=== PATIENT | female | born 1990 | race Caucasian/White ===

== ENCOUNTER 2023-04-25 13:17 | Observation (INO) | payer OTHER ==
[2023-04-25 15:13] VITALS: O2SAT 99
[2023-04-25 15:19] VITALS: BP 121/56; PULSE 84
== END 2023-04-25 14:55 | disposition home or self-care (01) ==
LOC: OB 13:17
PROVIDERS: ADMIT Obstetrics & Gynecology; ATTEND Obstetrics & Gynecology
DX: Z34.82 Encounter for supervision of other normal pregnancy, second trimester (principal); Z3A.26 26 weeks gestation of pregnancy
CPT/HCPCS: G0378; G0379

== ENCOUNTER 2023-07-20 07:20 | Inpatient (IN) | payer OTHER ==
[2023-07-20] MEDS ORDERED: BRETHINE 1 MG/ML SQ PRN (15:00)
[2023-07-20] MEDS ORDERED: Zofran 4 MG/2 ML VIAL IV PRN (15:00)
[2023-07-20 15:25] LABS: Absolute Neutrophil Ct (ANC) 8.88 x10^3/uL (1.4-6.9); BASOPHIL % 0.4 % (0.0-0.4); Basophil (Absolute #) 0.05 x10^3/uL (0-0.4); Eosinophil % 0.9 % (0.00-5.0); Hematocrit 39.3 % (35-47); Hemoglobin 13.2 g/dL (12.0-16.0); IMMATURE GRAN # 0.05 x10^3u/L (0.00-0.03); IMMATURE GRAN % 0.4 % (0.00-0.4); Lymphocyte (Absolute #) 1.59 x10^3/uL (1.0-4.6); Lymphocytes % 14.2 % (24.0-44.0); Mean Corpuscular Hemoglobin 30.6 pg (26-32); Mean Corpuscular Hgb Concent. 33.6 g/dL (32-36); Mean Platelet Volume 10.5 fL (7.5-11.0); Monocyte (Absolute #) 0.49 x10^3/uL (0.0-1.3); Monocytes % 4.4 % (0.0-12.0); Neutrophil % 79.7 % (36.0-66.0); Platelet Count 284 x10^3/uL (150-450); Red Blood Count 4.32 x10^6/uL (4.1-5.4); Red Cell Distribution Width 12.9 % (11.5-14.0); White Blood Count 11.2 x10^3/uL (4.0-10.5)
[2023-07-20 15:51] LABS: Amphetamine,Urine NEGATIVE (NEGATIVE); Barbiturate,Urine NEGATIVE (NEGATIVE); Benzodiazepine,Urine NEGATIVE (NEGATIVE); Cocaine,Urine NEGATIVE (NEGATIVE); Methadone,Urine NEGATIVE (NEGATIVE); Opiate,Urine NEGATIVE (NEGATIVE); PCP,Urine NEGATIVE (NEGATIVE); THC,Urine NEGATIVE (NEGATIVE)
[2023-07-20 16:02] LABS: ABO TYPING A; Antibody Screen NEGATIVE (NEGATIVE); RH TYPING POSITIVE
[2023-07-20] MEDS: CYTOTEC PO SCH ×4 (16:04→22:14)
[2023-07-20 16:08] LABS: Appearance Cloudy (Clear); Bacteria Many /HPF (None Seen); Bilirubin Negative (Negative); Blood Negative (Negative); Epithelial Cells Few /HPF (None Seen); Glucose, Urine Negative (Negative); Ketones 15 (Negative); Leukocyte Esterase Moderate (Negative); Nitrite Negative (Negative); Protein,Urine Dip Negative (Negative); WBC 51-100 /HPF (0-5)
[2023-07-20 16:16] LABS: ADD URINE CULTURE? YES (NO); Hyaline Casts NONE SEEN /LPF (0-2)
[2023-07-21] MEDS ORDERED: OMNIPEN 2 GM*** 2 G in Sodium Chloride 100ML MINI-BAG PLUS 100 ML IV ONE ×2
[2023-07-21] MEDS: CYTOTEC PO SCH ×3 (00:11→04:05)
[2023-07-21] MEDS ORDERED: OMNIPEN 1 GM*** 1 GM in Sodium Chloride 100ML MINI-BAG PLUS 100 ML IV SCH (04:00)
[2023-07-21] MEDS ORDERED: Lactated Ringers 1,000 ML IV ONE (06:00)
[2023-07-21] MEDS: TYLENOL EXTRA STRENGTH 500 MG PO PRN (06:25)
[2023-07-21] MEDS ORDERED: PITOCIN 30 UNITS/ LR 500 ML 30 UNITS/500 ML PLAST..BAG IV SCH ×2 (07:00→09:00)
[2023-07-21] MEDS ORDERED: Lactated Ringers 1,000 ML IV SCH (07:00)
[2023-07-21] MEDS ORDERED: FENTANYL 2 MCG-BUPIV 0.125%-NS 250 ML Epidur 250 ML EPIDURAL SCH (07:00)
[2023-07-21] MEDS ORDERED: Ephedrine Sulfate 50 MG/ML IV PRN (07:00)
[2023-07-21] MEDS ORDERED: XYLOCAINE 1% HCL 20 ML MDV IJ PRN (09:00)
[2023-07-21] MEDS ORDERED: Zithromax 500 MG/ 250 ML NaCl Premix 500 MG/250 ML IVPB IV SCH (11:45)
[2023-07-21] MEDS ORDERED: SODIUM CHLORIDE 0.9% IV ONE (11:45)
[2023-07-21] MEDS ORDERED: GARAMYCIN IV ONE (11:45)
[2023-07-21] MEDS ORDERED: Sodium Chloride 0.9% 1000 ML 1,000 ML ONE (12:18)
[2023-07-21] MEDS ORDERED: TUCKS TP PRN (13:18)
[2023-07-21] MEDS ORDERED: Dermoplast Spray TP PRN (13:18)
[2023-07-21] MEDS ORDERED: M-M-R II Vaccine With Diluent SQ ONE (13:18)
[2023-07-21] MEDS ORDERED: LANSINOH 40 GM TOP PRN (13:18)
[2023-07-21] MEDS ORDERED: Adacel Vial IM ONE (13:18)
[2023-07-21] MEDS: MOTRIN 400 MG PO PRN (21:19)
[2023-07-21] MEDS ORDERED: Docusate Sodium 100 MG PO SCH (22:00)
[2023-07-22] MEDS: MOTRIN 400 MG PO PRN (03:47)
[2023-07-22 04:41] VITALS: O2SAT 98
[2023-07-22 05:56] LABS: Absolute Neutrophil Ct (ANC) 8.06 x10^3/uL (1.4-6.9); BASOPHIL % 0.4 % (0.0-0.4); Basophil (Absolute #) 0.05 x10^3/uL (0-0.4); Eosinophil % 1.4 % (0.00-5.0); Eosinophil (Absolute #) 0.16 x10^3/uL (0-0.5); Hematocrit 34.7 % (35-47); Hemoglobin 11.3 g/dL (12.0-16.0); IMMATURE GRAN # 0.08 x10^3u/L (0.00-0.03); IMMATURE GRAN % 0.7 % (0.00-0.4); Lymphocyte (Absolute #) 2.21 x10^3/uL (1.0-4.6); Lymphocytes % 19.7 % (24.0-44.0); Mean Corpuscular Hemoglobin 30.3 pg (26-32); Mean Corpuscular Hgb Concent. 32.6 g/dL (32-36); Mean Platelet Volume 10.3 fL (7.5-11.0); Monocyte (Absolute #) 0.68 x10^3/uL (0.0-1.3); Neutrophil % 71.8 % (36.0-66.0); Platelet Count 222 x10^3/uL (150-450); Red Blood Count 3.73 x10^6/uL (4.1-5.4); Red Cell Distribution Width 13.1 % (11.5-14.0); White Blood Count 11.2 x10^3/uL (4.0-10.5)
[2023-07-22] MEDS: TYLENOL EXTRA STRENGTH 500 MG PO PRN (06:44)
--- NOTE | 2023-07-22 08:29 | PCM.NOTE ---
Date and Time: 07/22/23826 Subjective Assessment: ppd 1 sp pt resting in bed and doing well able to ambulate and tolerate diet. vss afebrile abd; soft uterus; firm lohica; mild a/p sp ppd 1 dc home tomorrow should fu office in 3 wks OBJECTIVE DATA Vital Signs: Vital Signs - 24 hr Temp Pulse Resp BP BP BP Pulse Ox 07/22/23 03:00 97.7 F 50 L 18 98 07/22/23 01:00 97.9 F 53 L 18 107/73 97 07/21/23 21:00 98.5 F 64 20 130/74 98 07/21/23 16:30 98.9 F 55 L 20 107/65 98 07/21/23 16:00 98.9 F 54 L 20 116/60 99 07/21/23 15:00 98.9 F 52 L 20 128/65 100 07/21/23 14:30 98.7 F 54 L 20 114/59 99 07/21/23 14:00 98.7 F 60 20 135/74 99 07/21/23 13:45 98.7 F 60 20 133/63 99 07/21/23 13:30 98.7 F 59 L 20 114/61 99 07/21/23 13:15 98.7 F 64 20 122/60 99 07/21/23 13:00 98.7 F 71 20 125/61 99 07/21/23 12:45 98.2 F 77 20 124/66 99 07/21/23 12:30 98.2 F 20 99 07/21/23 12:15 98.8 F 120 H 20 118/74 99 07/21/23 12:00 99.0 F 120 H 18 118/74 118/74 100 07/21/23 11:45 99.0 F 85 18 131/85 100 07/21/23 11:30 99.0 F 18 100 07/21/23 11:15 99.0 F 69 18 119/56 100 07/21/23 11:00 99.0 F 67 18 116/64 100 07/21/23 10:45 98.0 F 56 L 18 121/57 100 07/21/23 10:30 98.0 F 56 L 18 134/66 100 07/21/23 10:15 98.0 F 73 18 134/59 100 07/21/23 10:00 98.0 F 72 18 118/61 100 07/21/23 09:45 98.0 F 66 18 100 07/21/23 09:30 98.0 F 77 18 112/67 100 07/21/23 09:15 98.0 F 74 18 106/57 100 07/21/23 09:00 98.0 F 64 18 127/74 100 07/21/23 08:45 98.0 F 67 18 102/57 100 07/21/23 08:30 98.0 F 84 18 113/77 100 Pain Assessment - Last Documented Pain Intensity [Lower] 2 Pain Intensity 4 Pain Scale Used 0-10 Pain Scale Intake and Output: Intake & Output 07/19/23 07/20/23 07/21/23 07/22/23 11:59 11:59 11:59 11:59 Intake Total 1999 2500 Output Total 200 Balance 1999 2300 Weight 95.254 kg Lab Results: Lab Results-Last 24 Hours 07/22/23 Range/Units 05:15 WBC 11.2 H (4.0-10.5) x10^3/uL RBC 3.73 L (4.1-5.4) x10^6/uL Hgb 11.3 L (12.0-16.0) g/dL Hct 34.7 L (35-47) % MCV 93.0 (78-100) fL MCH 30.3 (26-32) pg MCHC 32.6 (32-36) g/dL RDW 13.1 (11.5-14.0) % Plt Count 222 (150-450) x10^3/uL MPV 10.3 (7.5-11.0) fL Gran % 71.8 H (36.0-66.0) % Immature Gran % (Auto) 0.7 H (0.00-0.4) % Nucleat RBC Rel Count 0.0 (0.00-0.1) % Eos # (Auto) 0.16 (0-0.5) x10^3/uL Immature Gran # (Auto) 0.08 H (0.00-0.03) x10^3u/L Absolute Lymphs (auto) 2.21 (1.0-4.6) x10^3/uL Absolute Monos (auto) 0.68 (0.0-1.3) x10^3/uL Absolute Nucleated RBC 0.00 (0.00-0.01) x10^3u/L Lymphocytes % 19.7 L (24.0-44.0) % Monocytes % 6.0 (0.0-12.0) % Eosinophils % 1.4 (0.00-5.0) % Basophils % 0.4 (0.0-0.4) % Absolute Granulocytes 8.06 H (1.4-6.9) x10^3/uL Basophils # 0.05 (0-0.4) x10^3/uL Assessment/Plan (1) Vaginal delivery Current Visit: Yes Status: Acute Code(s): O80 - ENCOUNTER FOR FULL-TERM UNCOMPLICATED DELIVERY
--- NOTE | 2023-07-22 08:31 | PCM.DS ---
Discharge Summary Date of Admission: 07/21/23 07:20 Admitting Physician: REHAN PUENTES DO Consults: Consults on Case 07/21/23 08:00 Notify Anesthesia Provider PRN Primary Care Provider: GEM BONILLA Allergies Allergies No Known Drug Allergies Allergy (Verified 07/12/23 16:16) Hospital Summary - Hospital Course Hospital Course: pt admitted on july 20 for oral cytotec induction at 39 wks gestation and subsequently delivered live baby boy via on july 21 with nuchal cord x 1 without complication. during period did very well able to ambulate and tolerate diet. pt with stable hgb at 11 and at this time stable for discharge on july 23. all questions answered to her satisfaction. - Vitals & Intake/Output Vital Signs: Vital Signs Temperature 97.7 F 07/22/23 03:00 Pulse Rate 50 L 07/22/23 03:00 Respiratory Rate 18 07/22/23 03:00 Blood Pressure 107/73 07/22/23 01:00 O2 Sat by Pulse Oximetry 98 07/22/23 03:00 Intake & Output: Intake & Output 07/19/23 07/20/23 07/21/23 07/22/23 11:59 11:59 11:59 11:59 Intake Total 2000 2500 Output Total 200 Balance 1999 2300 Weight 95.254 kg - Lab Result Diagrams: 07/22/23 05:15 Lab Results-Last 24 Hrs: Lab Results-Last 24 Hours 07/22/23 Range/Units 05:15 WBC 11.2 H (4.0-10.5) x10^3/uL RBC 3.73 L (4.1-5.4) x10^6/uL Hgb 11.3 L (12.0-16.0) g/dL Hct 34.7 L (35-47) % MCV 93.0 (78-100) fL MCH 30.3 (26-32) pg MCHC 32.6 (32-36) g/dL RDW 13.1 (11.5-14.0) % Plt Count 222 (150-450) x10^3/uL MPV 10.3 (7.5-11.0) fL Gran % 71.8 H (36.0-66.0) % Immature Gran % (Auto) 0.7 H (0.00-0.4) % Nucleat RBC Rel Count 0.0 (0.00-0.1) % Eos # (Auto) 0.16 (0-0.5) x10^3/uL Immature Gran # (Auto) 0.08 H (0.00-0.03) x10^3u/L Absolute Lymphs (auto) 2.21 (1.0-4.6) x10^3/uL Absolute Monos (auto) 0.68 (0.0-1.3) x10^3/uL Absolute Nucleated RBC 0.00 (0.00-0.01) x10^3u/L Lymphocytes % 19.7 L (24.0-44.0) % Monocytes % 6.0 (0.0-12.0) % Eosinophils % 1.4 (0.00-5.0) % Basophils % 0.4 (0.0-0.4) % Absolute Granulocytes 8.06 H (1.4-6.9) x10^3/uL Basophils # 0.05 (0-0.4) x10^3/uL Micro Results-Entire Visit: Microbiology 07/20/23 15:26 Urine Culture - Preliminary Clean Catch Midstream NO GROWTH TO DATE Final Diagnosis/Problem List - Final Discharge Diagnosis/Problem (1) Vaginal delivery Current Visit: Yes Status: Acute Code(s): O80 - ENCOUNTER FOR FULL-TERM UNCOMPLICATED DELIVERY - Discharge Disposition: Home, Self-Care Condition: Stable Prescriptions: No Action Pnv No.95/Ferrous Fum/Folic AC [ Caplet] 1 each PO DAILY Citalopram Hydrobromide [Celexa] 10 mg PO DAILY Follow up with: GEM BONILLA MD [Primary Care Provider] - REHAN PUENTES DO [ACTIVE STAFF] - 3 weeks
[2023-07-22] MEDS ORDERED: FERREX 150 PO SCH (10:00)
[2023-07-22 17:30] VITALS: TEMP 98.6
[2023-07-23 08:14] VITALS: BP 119/69; PULSE 52; RESP 17
== END 2023-07-23 10:15 | disposition home or self-care (01) | DRG 807 ==
LOC: OB 07:20 → OBSVTOIN 07-21 07:20
PROVIDERS: ADMIT Obstetrics & Gynecology; ATTEND Obstetrics & Gynecology
PROC: 10E0XZZ Delivery of Products of Conception, External Approach (ICD-10-PCS; principal; 2023-07-21)
DX: O69.81X0 Labor and delivery complicated by cord around neck, without compression, not applicable or unspecified (principal); Z37.0 Single live birth; Z3A.39 39 weeks gestation of pregnancy; Z20.828 Contact with and (suspected) exposure to other viral communicable diseases
CPT/HCPCS: 36415; 80307; 81001; 84112; 85025; 86850; 86900; 86901; 87086; 90707; 90715; G0378; G0379; J0290; J1580; J2405; J2590; A9270-GY